=== PATIENT | male | born 1950 | race Caucasian/White ===

== ENCOUNTER 2022-06-01 10:01 | Emergency (ER) | payer OTHER | END 2022-06-01 12:05 | disposition home or self-care (01) | LOC: JD.ED 10:01 | DX: S76.311A Strain of muscle, fascia and tendon of the posterior muscle group at thigh level, right thigh, initial encounter (principal); I10 Essential (primary) hypertension; Z86.16 Personal history of COVID-19; W01.0XXA Fall on same level from slipping, tripping and stumbling without subsequent striking against object, initial encounter | CPT/HCPCS: 72170; 72170-26; 73552-26-RT; 73552-RT; 99283 ==